=== PATIENT | male | born 1980 | race Caucasian/White ===

== ENCOUNTER 2021-08-04 17:52 | Emergency (ER) | payer OTHER ==
[~2021-08-04] VITALS: Ht 167.6 cm; Wt 72.1 kg
[2021-08-04] MEDS ORDERED: ONDANSETRON 4 MG TAB.RAPDIS SL ONE (19:00)
[2021-08-04] MEDS ORDERED: ONDANSETRON 4 MG TAB.RAPDIS ONE (19:11)
--- NOTE | 2021-08-04 19:17 | NUR ---
MEDICATED ORDERED,COVID SWAB SENT TO LAB
[2021-08-04] MEDS ORDERED: AZIT500T PO (20:37)
[2021-08-04] MEDS ORDERED: ONDA4TAB5 PO (20:38)
--- NOTE | 2021-08-04 20:54 | NUR ---
Patient discharged to home in stable condition. Rx and Written and verbal after care instructions given. Patient verbalizes understanding of instruction.
[2021-08-04 21:48] VITALS: BP 116/62
== END 2021-08-04 20:55 | disposition home or self-care (01) ==
LOC: ER 18:05
DX: J18.9 Pneumonia, unspecified organism (principal); R43.9 Unspecified disturbances of smell and taste; Z20.822 Contact with and (suspected) exposure to COVID-19
CPT/HCPCS: 71045; 87426; 99284; C9803; Q0162